=== PATIENT | female | born 1955 | race Caucasian/White ===

== ENCOUNTER → 2020-12-11 | Outpatient (CLI) | payer MEDICARE, OTHER | LOC: M.RAD 11-30 10:59 → M.CT 09:11 | PROVIDERS: ATTEND Nurse Practitioner Family | DX: Z12.31 Encounter for screening mammogram for malignant neoplasm of breast (principal); Z78.0 Asymptomatic menopausal state; F17.219 Nicotine dependence, cigarettes, with unspecified nicotine-induced disorders; M85.88 Other specified disorders of bone density and structure, other site; N64.89 Other specified disorders of breast ==